=== PATIENT | female | born 1975 | race Two or more races ===

== ENCOUNTER 2022-08-12 22:47 | Emergency (ER) | payer SELFPAY ==
[~2022-08-12] VITALS: Ht 154.9 cm; Wt 90.9 kg
[~2022-08-12 22:47] MED LIST: PREN1TAB52 PO
[2022-08-12 22:51] VITALS: TEMP 98.2
[2022-08-13] MEDS ORDERED: HYDROCODONE/ACETAMINOPHEN 5-325 MG TABLET PO ONE (00:15)
[2022-08-13 02:04] VITALS: BP 132/76; PULSE 78; RESP 19
== END 2022-08-13 02:06 | disposition home or self-care (01) ==
LOC: EMS 22:47
DX: S09.90XA Unspecified injury of head, initial encounter (principal); Z98.890 Other specified postprocedural states; W18.2XXA Fall in (into) shower or empty bathtub, initial encounter; Y93.89 Activity, other specified; Y92.89 Other specified places as the place of occurrence of the external cause; Y99.8 Other external cause status
CPT/HCPCS: 70450; 72125; 99284